=== PATIENT | male | born 1980 | race Caucasian/White ===

== ENCOUNTER 2021-07-06 01:35 | Day surgery (SDC) | payer BC, SELFPAY ==
[2021-07-05 16:15] VITALS: BMI 30.4
--- NOTE | ~2021-07-06 | BM_ITS ---
EXAMINATION: CCL bone marrow asp w bx diag DATE: 07/09/2021 11:03 INDICATION: Chronic anemia. TECHNIQUE: A time-out was performed to verify the patient's name, date of , and procedure to b e performed. The procedure including the risks, benefits, and alternatives was discussed with the pat ient. Risks discussed included bleeding and infection. The patient understood the risks and agreed to proceed. The skin overlying the left ilium was prepped and draped in usual sterile fashion. Anesth etic was administered with 1% lidocaine subcutaneously. Minimal sedation was achieved with 1 mg Verse d IV and 50 mg fentanyl IV. An 11 gauge needle was inserted into the ilium with fluoroscopic guidanc e. Bone marrow was aspirated. An 8 gauge needle was then inserted into the ilium with fluoroscopic gu idance. A core bone marrow biopsy was obtained. There were no immediate complications. Fluoroscopy ex posure time was 0.0 minutes. The total number of images was 1. FINDINGS: Real-time fluoroscopy demonstrates a marker overlying the left posterior superior iliac spi ne. IMPRESSION: 1. Fluoro-guided bone marrow aspiration. 2. Fluoro-guided bone marrow core biopsy. Reviewed, dictated and finalized at location A.
[2021-07-06 08:21] VITALS: BP 109/71; PULSE 70; RESP 12; TEMP 35.8; O2SAT 98
[2021-07-06 08:41] LABS: Basophils Percent Auto 0.5 % (0.2-1.2); Eosinophils Absolute Auto 0.1 K/mm3 (0-0.3); Eosinophils Percent Auto 1.3 % (0-4.4); Hematocrit 39.5 % (42.0-52.0); Hemoglobin 13.5 g/dL (14.0-18.0); Immature Granulocyte Absolute 0.02 K/mm3 (0.00-0.031); Immature Granulocyte Percent A 0.3 % (0-0.5); Lymphocytes Absolute Auto 2.15 K/mm3 (0.9-3.2); Lymphocytes Percent Auto 35.4 % (18.3-44.2); Mean Corpuscular HGB Conc 34.2 g/dl (32-36); Mean Corpuscular Volume 93.6 fl (80-100); Mean Platelet Volume 9.2 fl (7.4-10.4); Monocytes Absolute Auto 0.6 K/mm3 (0.1-0.6); Monocytes Percent Auto 9.4 % (2.6-8.5); Neutrophils Absolute Auto 3.2 K/mm3 (1.3-6.7); Neutrophils Percent Auto 53.1 % (45.5-73.1); Platelet Count Result 261 k/mm3 (150-375); Red Blood Count 4.22 M/mm3 (4.6-6.20); Red Cell Distribution Width 12.1 % (11.5-14.5); White Blood Count 6.1 K/mm3 (4.5-10.0)
--- NOTE | 2021-07-06 09:37 | P.SEDATION_ITS ---
Moderate Sedation Note-Pt Data Patient Data Allergies Allergy/AdvReac Type Severity Reaction Status Date / Time No Known Allergies Allergy Verified 12/26/20 09:24 Home Medications Medication Instructions Recorded Confirmed Type buspirone 5 mg tablet See Rx Instructions .ROUTE 02/08/21 07/05/21 Rx .COMPLEX #180 tablet buspirone 7.5 mg tablet See Rx Instructions .ROUTE 02/08/21 07/05/21 Rx .COMPLEX #90 tablet Sedation/Anesthesia: No previous sedation/anesthesia problems (including family history). [facility] Social History Social History Smoking status: Former smoker Second hand tobacco smoke exposure: Yes Smoking end date: 10/13/08 Alcohol intake: current Drinks per week: 6 Substance use: never Substance use type: does not use Spiritual care concerns: No Mod Sed Physical Exam Physical Exam Pre Procedural Exam: Normal: Appearance, Airway, Lungs, Heart Rate, Heart Rhythm and Abdomen Hours since solid foods: 12 Hours since liquid intake: 12 Mallampati Classification: class 1 Internal Medicine - PN: Obj Da Vital Signs Vital Signs: Vital Signs - 24 hr 07/06/21 08:21 Temperature 35.8 C L Pulse Rate 70 Respiratory Rate 12 Blood Pressure 109/71 Pulse Oximetry 98 Labs CBC & Chem 7: 07/06/21 08:15 Labs: Laboratory Results - last 24 hr 07/06/21 08:15 WBC 6.1 RBC 4.22 L Hgb 13.5 L Hct 39.5 L MCV 93.6 MCH 32.0 MCHC 34.2 RDW 12.1 Plt Count 261 MPV 9.2 Immature Gran % (Auto) 0.3 Neut % (Auto) 53.1 Lymph % (Auto) 35.4 [place] % (Auto) 9.4 H Eos % (Auto) 1.3 Baso % (Auto) 0.5 Lymph # (Auto) 2.15 [place] # (Auto) 0.6 Eos # (Auto) 0.1 Baso # (Auto) 0.0 Abs Immat Gran (auto) 0.02 Absolute Neuts (auto) 3.2 Absolute Nucleated RBC 0.0 Nucleated RBC % 0.0 ASA Classification/Sedation ASA Classification/Sedation ASA Class: II Emergent: No Risks: Risks, benefits and alternatives explained and patient/family accepted plan for sedation. Patient re-evaluated immediately prior to sedation.
[2021-07-06 09:45] VITALS: BP 101/64; PULSE 47; RESP 10; TEMP 36.5; O2SAT 98
[2021-07-06 10:00] VITALS: BP 121/88; PULSE 60; RESP 16; O2SAT 99
[2021-07-06 10:15] VITALS: BP 104/61; PULSE 63; RESP 17; O2SAT 100
--- NOTE | 2021-07-06 10:38 | SUR.PHASEII ---
Discharge instructions reviewed with patient. Patient verbalizes understanding of all information given. PIV removed, catheter intact, and dressing applied. Patient escorted to front of building by staff, where he was driven home by his mother.
== END 2021-07-06 10:40 | disposition home or self-care (01) ==
PROVIDERS: Radiology Diagnostic Radiology; PCP Internal Medicine; Visit Provider Internal Medicine Hematology & Oncology
DX: D64.9 Anemia, unspecified (principal); Z87.891 Personal history of nicotine dependence
CPT/HCPCS: 36415; 38222; 85025; 85060; 88184; 88185; 88305; 88311; 88313; J1642; J2250; J3010; J7040

== ENCOUNTER 2022-10-29 19:08 | Emergency (ER) | payer BC, SELFPAY ==
--- NOTE | 2022-10-29 19:15 | ED.EAR ---
HPI - Ear Problem General Chief complaint: Ear Stated complaint: congestion,bilateral ear pain Time Seen by Provider: 10/29/22 19:15 Source: patient Mode of arrival: ambulatory Limitations: no limitations History of Present Illness HPI Narrative: Zheng is a 42-year-old male patient presenting to clinic today with complaints of nasal congestion, sinus pressure, and bilateral ear pain x 4 weeks. He reports no fever or chills is coughing and bringing up some yellowish brown phlegm. Been having a lot headaches due to this. Related Data Home Medications Medication Instructions Recorded Confirmed bupropion HCl 100 mg tablet,12 hr 100 mg PO BID 10/29/22 10/29/22 sustained-release Allergies Allergy/AdvReac Type Severity Reaction Status Date / Time No Known Allergies Allergy Verified 10/29/22 19:10 Review of Systems Review of Systems: Pertinent positives per HPI. Patient denies any fever, chills, rash, headache, visual changes, dizziness, sore throat, shortness of breath, chest pain, palpitations, nausea, vomiting, diarrhea, constipation, abdominal pain, or any urinary issues. [facility] Social History Social History Smoking status: Former smoker Second hand tobacco smoke exposure: Yes Smoking end date: 10/13/08 Alcohol intake: current Drinks per week: 6 Substance use: never Substance use type: does not use Spiritual care concerns: No Comments At the time of my signature, I reviewed and agree with the nursing past medical, surgical, social, and family history. There is no relevant family history pertinent to the patient complaint. Exam Narrative: General: Well-developed, well nourished, in no apparent distress Head: Normocephalic, atraumatic Eyes: Pupils equally round and reactive to light bilaterally, EOM intact, sclera and conjunctive clear, no discharge, lids normal Ears: TMs intact, dull, congested, ear canals clear, no drainage, grossly hearing normal. Nose: Nares patent, yellow nasal discharge, severe inflammation, maxillary and frontal sinus tenderness. Mouth: Oropharynx without lesions or masses, good dentition, MMM. Postnasal drip Neck: Supple, trachea midline, no enlargement of anterior or posterior cervical nodes, no thyroid masses or goiter palpable. Cardio: Regular rate and rhythm, s1 and s2 normal, no murmur appreciated. Resp: Clear to auscultation bilaterally anteriorly and posteriorly, no rhonchi, rales, wheezing or rubs Course Course Emergency Course: Portions of this record may have been created with voice recognition software. Level of Care: Express Care Visit Vital Signs Vital signs: Vital signs reviewed Medical Decision Making MDM Narrative Medical decision making narrative: At the time of visit patient is resting comfortably on the exam table. I suspect patient has acute bacterial rhinosinusitis and will send in prescription for Augmentin prednisone. Supportive measures were discussed with the patient he voiced understanding of discharge instructions and agrees to treatment plan. Differential Diagnosis Differential Diagnosis: Otitis media, otitis externa, eustachian tube dysfunction, upper respiratory infection, sinus infection Discharge Plan Discharge Clinical Impression: Acute bacterial rhinosinusitis Patient Disposition: Home, Self-Care Condition: Stable Instructions: Antibiotic Form, Rhinosinusitis (ED) Additional Instructions: Take prescription medications only as prescribed-prednisone and Augmentin Increase fluids and stay well hydrated Tylenol/motrin for pain/fever Flonase and OTC antihistamines as directed Vicks vapor rub to open sinuses Sinus rinses for congestion Cepacol spray, cough drops, throat lozenges, warm tea with honey/lemon, gargle salt water to soothe throat BRAT diet for diarrhea Clear liquids x 24 hours then advance as tolerated for nausea/vomiting
[2022-10-29 19:18] VITALS: BP 113/70; PULSE 82; RESP 18; TEMP 36.2; O2SAT 98
== END 2022-10-29 19:23 | disposition home or self-care (01) ==
PROVIDERS: Emergency Provider Nurse Practitioner Family; PCP Nurse Practitioner Family
DX: J01.90 Acute sinusitis, unspecified (principal); Z87.891 Personal history of nicotine dependence; F41.9 Anxiety disorder, unspecified; Z98.52 Vasectomy status
CPT/HCPCS: 99213; G0463